=== PATIENT | male | born 1945 | race Caucasian/White ===

== ENCOUNTER 2017-11-19 11:31 | Inpatient (IN) | payer OTHER, MEDICARE ==
[2017-11-19] MEDS ORDERED: HYDROmorphone 0.5 MG/0.5 ML SYRINGE IM STA (12:36)
[2017-11-19] MEDS ORDERED: DIAZEPAM 5 MG TAB PO STA (12:39)
[2017-11-19] MEDS ORDERED: NAPROXEN 250 MG TAB PO STA (12:39)
--- NOTE | 2017-11-19 13:36 | ED ---
General Adult HPI - General Chief complaint: Fall Stated complaint: Fall Time Seen by Provider: 11/19/17 12:08 Source: family, RN notes reviewed, old records reviewed Mode of arrival: wheelchair Limitations: no limitations - History of Present Illness Initial comments: This is a 72-year-old male to the ER for evaluation. Patient was essay for evaluation regarding back pain, back pain status post fall. Back pain with right leg pain. Patient has history of back surgery. This is followed 3 days ago currently. He was seen in the hospital have CAT scan and was told there was no acute injury. Patient states pain is just progressively worsened activity level is progressively worsened. Pain is better when he is laying flat denies any new trauma no loss of bowel or bladder, he does have pain down right leg but no neurological issues - Related Data Allergies Allergy/AdvReac Type Severity Reaction Status Date / Time morphine AdvReac Nausea & Verified 11/19/17 11:41 Vomiting Penicillins AdvReac Nausea & Verified 11/19/17 11:41 Vomiting Review of Systems ROS Statement: Those systems with pertinent positive or pertinent negative responses have been documented in the HPI. ROS Other: All systems not noted in ROS Statement are negative. Past Medical History Past Medical History: Diabetes Mellitus, Osteoarthritis (OA) Additional Past Medical History / Comment(s): neuropathy, tachycardia History of Any Multi-Drug Resistant Organisms: None Reported Past Surgical History: Back Surgery, Cardiac Ablation, Orthopedic Surgery Additional Past Surgical History / Comment(s): carpal tunnel Past Psychological History: No Psychological Hx Reported Smoking Status: Former smoker Past Alcohol Use History: None Reported Past Drug Use History: None Reported General Exam - General Exam Comments Initial Comments: Straight leg raising right leg negative Limitations: no limitations General appearance: alert, in no apparent distress Head exam: Present: atraumatic, normocephalic, normal inspection Eye exam: Present: normal appearance, PERRL, EOMI. Absent: scleral icterus, conjunctival injection, periorbital swelling ENT exam: Present: normal exam, mucous membranes moist Neck exam: Present: normal inspection. Absent: tenderness, meningismus, lymphadenopathy Respiratory exam: Present: normal lung sounds bilaterally. Absent: respiratory distress, wheezes, rales, rhonchi, stridor Cardiovascular Exam: Present: regular rate, normal rhythm, normal heart sounds. Absent: systolic murmur, diastolic murmur, rubs, gallop, clicks GI/Abdominal exam: Present: soft, normal bowel sounds. Absent: distended, tenderness, guarding, rebound, rigid Extremities exam: Present: normal inspection, full ROM, normal capillary refill. Absent: tenderness, pedal edema, joint swelling, calf tenderness Back exam: Present: normal inspection Neurological exam: Present: alert, oriented X3, CN II-XII intact Psychiatric exam: Present: normal affect, normal mood Skin exam: Present: warm, dry, intact, normal color. Absent: rash Course Vital Signs 11/19/17 11:37 Temperature 97.7 F Pulse Rate 83 Respiratory 20 Rate Blood Pressure 129/73 O2 Sat by Pulse 99 Oximetry - Reevaluation(s) Reevaluation #1: 11/19/17 13:35 Family states that they did have a consult of her radiologist family member regarding computed tomography scan done earlier in the week which showed possible fracture of L1 vertebra Reevaluation #2: 11/19/17 14:54 pain is controlled Medical Decision Making - Medical Decision Making 72 male the ER, positive multiple thoracic compression fractures, lumbar spine compression fractures, we will will admit patient for pain control evaluation by Dr. Woody possible bracing, MRI to rule out cord compression - Radiology Data Radiology results: report reviewed (CT thoracic and lumbar spine show positive compression fractures), image reviewed Disposition Clinical Impression: Fall, Fracture of thoracic vertebra, compression, Compression fx, lumbar spine Disposition: ADMITTED IP TO THIS [facility] Condition: Fair Is patient prescribed a controlled substance at d/c from ED?: No Referrals: Nonstaff,Physician [REFERRING] - 1-2 days
--- NOTE | 2017-11-19 14:22 | CT ---
EXAMINATION TYPE: CT lumbar spine wo con DATE OF EXAM: 11/19/2017 2:08 PM COMPARISON: NONE HISTORY: Fall, back pain getting worse CT DLP: 919.29 mGycm Automated exposure control for dose reduction was used. Unenhanced CT of the lumbar spine was performed. Bone and soft tissue window settings are submitted as well as coronal and sagittal reconstructions. L1-L2: Compression fracture of the superior endplate of L1 with about 20% loss of height. No definite retropulsed bony fragment. Preservation of the disc space height. No disc herniation protrusion or central stenosis. No facet joint arthropathy. No evidence for foraminal encroachment. Preservation of the posterior neural arches and pedicles. L2-L3: Normal disc space height. Vacuum phenomenon at the L2-L3 intervertebral disc. No disc herniat ion protrusion or central stenosis. Hypertrophic changes of the posterior facets. Mild degree of suba rticular recess stenosis. L3-L4: Normal disc space height. Circumferential disc bulge of the anulus fibrosis posteriorly.. No facet joint arthropathy. No evidence for foraminal encroachment. L4-L5: Normal disc space height. Discogenic protrusion toward the right side producing narrowing of t he right exiting neural foramina. Vacuum phenomenon at the intervertebral disc space.. Hypertrophic c hanges of the posterior facets. L5-S1: Normal disc space height. No disc herniation protrusion or central stenosis. No facet joint arthropathy. No evidence for foraminal encroachment. IMPRESSION: Compression fracture of the superior endplate of L1 with about 20% loss of height. No retropulsed bon y fragments. No significant compromise into the spinal canal. Vacuum phenomenon at multiple intervert ebral disc spaces as described above with the screening bulges. Hypertrophic changes of the posterior facets with mild degree of subarticular recess stenosis more noticeable at the L2 on L3 level.
--- NOTE | 2017-11-19 14:27 | CT ---
EXAMINATION TYPE: CT thoracic spine wo con DATE OF EXAM: 11/19/2017 COMPARISON: Prior CT study from outside institution dated 620 01/16/2018 HISTORY: Fall, back pain getting worse CT DLP: 1444.84 mGycm Automated exposure control for dose reduction was used. FINDINGS: Dorsal kyphosis with multiple compression deformities between 20 and 25% loss of height at the level of the fourth, fifth, sixth and seventh dorsal vertebra. Dorsal kyphosis centered on the mid thoracic level. No retropulsed bony fragment. Schmorl node at inferior endplate of the ninth dorsal vertebra. Prominent osteophytic spur formation throughout the dorsal spine. No significant thoracic cord compr ession although level with the thoracic spine MRI may be performed for further evaluation. IMPRESSION: MULTIPLE COMPRESSION DEFORMITIES INVOLVING THE FOURTH, FIFTH, SIXTH AND SEVENTH DORSAL VERTEBRA WITH ABOUT 20-25% LOSS OF HEIGHT AT MULTIPLE LEVELS DESCRIBED WITH DORSAL KYPHOSIS. NO DEFINITE RETROPU LSED BONY FRAGMENTS.
--- NOTE | 2017-11-19 14:36 | CT ---
EXAMINATION TYPE: CT sacrum wo con DATE OF EXAM: 11/19/2017 COMPARISON: NONE HISTORY: Fall, back pain getting worse CT DLP: 573.31 mGycm Automated exposure control for dose reduction was used. FINDINGS: Osteopenia of the visible bony structures. Acute angulation along the level of the third sacral segme nt indicative of a sacral fracture which is essentially not displaced. IMPRESSION: OSTEOPENIA OR VISIBLE BONY STRUCTURE WITH AN ESSENTIALLY UNDISPLACED FRACTURE OF THE LEVEL OF THE THI RD SACRAL SEGMENT VISUALIZED ON THE LATERAL PROJECTION.
[2017-11-19] MEDS ORDERED: SODIUM CHLORIDE 0.9% 1,000 ML IV ONE (14:54)
[2017-11-19] MEDS ORDERED: ONDANSETRON 4 MG/2 ML VIAL IVP STA (14:54)
[2017-11-19] MEDS ORDERED: SODIUM CHLORIDE 0.9% 1,000 ML IV STA ×2 (14:54)
[2017-11-19] MEDS ORDERED: HYDROmorphone 0.5 MG/0.5 ML SYRINGE IVP STA (14:54)
[2017-11-19 16:22] LABS: Basophils % (A) 1 %; Eosinophils # (A) 0.1 k/uL (0-0.7); Eosinophils % (A) 3 %; HCT 37.1 % (39.0-53.0); HGB 12.5 gm/dL (13.0-17.5); Lymphocytes % (A) 21 %; MCH 30.4 pg (25.0-35.0); MCHC 33.5 g/dL (31.0-37.0); MCV 90.6 fL (80.0-100.0); Mean Platelet Volume 6.3; Monocytes # (A) 0.3 k/uL (0-1.0); Monocytes % (A) 7 %; Neutrophils # (A) 3.1 k/uL (1.3-7.7); Neutrophils % (A) 67 %; Platelet Count 176 k/uL (150-450); RDW 14.5 % (11.5-15.5); WBC 4.6 k/uL (3.8-10.6)
[2017-11-19 16:29] LABS: INR 0.9 (<1.2); Partial Thromboplastin Time 23.1 sec (22.0-30.0); Prothrombin Time 9.5 sec (9.0-12.0)
[2017-11-19 16:39] LABS: Albumin 3.6 g/dL (3.5-5.0); Calcium 8.8 mg/dL (8.4-10.2); Magnesium 1.9 mg/dL (1.6-2.3); Phosphorus 3.7 mg/dL (2.5-4.5); Potassium 4.9 mmol/L (3.5-5.1); Total Bilirubin 0.5 mg/dL (0.2-1.3); Total Protein 5.9 g/dL (6.3-8.2)
[2017-11-19 16:50] LABS: Creatine Kinase MB 1.4 ng/mL (0.0-2.4)
[2017-11-19] MEDS ORDERED: oxyCODONE-APAP 5-325MG 1 EACH TAB PO PRN (21:09)
[2017-11-19] MEDS ORDERED: DOCUSATE 100 MG CAP PO PRN (21:09)
[2017-11-19] MEDS ORDERED: ATORVASTATIN 10 MG TAB PO SCH (21:15)
[2017-11-19] MEDS ORDERED: Insulin Aspart (For Pump) 100 UNIT/ML VIAL SQ-PUMP SCH (21:15)
[2017-11-19] MEDS ORDERED: ONDANSETRON 4 MG/2 ML VIAL IVP PRN (21:24)
[2017-11-19] MEDS ORDERED: TAMSULOSIN 0.4 MG CAP.ER.24H PO SCH (21:30)
[2017-11-19] MEDS ORDERED: METOPROLOL SUCCINATE (ER) 25 MG TAB.ER.24H PO SCH (21:30)
[2017-11-19 21:31] LABS: Glucose,Whole Blood 203 mg/dL (75-99)
[2017-11-19] MEDS: HYDROmorphone 0.5 MG/0.5 ML SYRINGE IVP PRN (21:55)
[2017-11-19] MEDS: busPIRone HCl 5 MG TAB PO SCH (22:03)
[2017-11-19] MEDS: CYCLOBENZAPRINE 10 MG TAB PO PRN (22:05)
[2017-11-19] MEDS: FLECAINIDE 50 MG TAB PO SCH (22:05)
[2017-11-19] MEDS ORDERED: INSULIN ASPART 100 UNIT/ML 1 ML 10 ML VIAL SQ PRN (22:51)
[2017-11-19] MEDS ORDERED: INSPUCOR MISCELLANE PRN (22:51)
[2017-11-19] MEDS ORDERED: INSULIN PUMP BASAL RATES 1 EACH MISC MISCELLANE PRN (22:51)
[2017-11-19 23:16] VITALS: RESP 16
[2017-11-19 23:39] LABS: Appearance,Urine Clear (Clear); Bilirubin,Urine Negative (Negative); Blood,Urine Negative (Negative); Color,Urine Yellow; Glucose,Urine (UA) Negative (Negative); Ketones,Urine Negative (Negative); Leukocyte Esterase,Urine Negative (Negative); Nitrite,Urine Negative (Negative); Protein,Urine Negative (Negative); Urobilinogen,Urine <2.0 mg/dL (<2.0)
[2017-11-20] MEDS: HYDROmorphone 0.5 MG/0.5 ML SYRINGE IVP PRN ×4 (01:00→13:05)
[2017-11-20 02:48] LABS: Glucose,Whole Blood 74 mg/dL (75-99)
[2017-11-20 06:57] LABS: Basophils % (A) 0 %; Eosinophils # (A) 0.2 k/uL (0-0.7); Eosinophils % (A) 4 %; HCT 36.1 % (39.0-53.0); HGB 11.7 gm/dL (13.0-17.5); Lymphocytes # (A) 0.9 k/uL (1.0-4.8); Lymphocytes % (A) 23 %; MCH 29.9 pg (25.0-35.0); MCHC 32.6 g/dL (31.0-37.0); MCV 91.8 fL (80.0-100.0); Mean Platelet Volume 6.6; Monocytes # (A) 0.2 k/uL (0-1.0); Monocytes % (A) 6 %; Neutrophils # (A) 2.6 k/uL (1.3-7.7); Neutrophils % (A) 65 %; Platelet Count 173 k/uL (150-450); RBC 3.93 m/uL (4.30-5.90); RDW 14.8 % (11.5-15.5)
[2017-11-20 07:00] LABS: Glucose,Whole Blood 112 mg/dL (75-99)
[2017-11-20 07:07] LABS: Albumin 3.7 g/dL (3.5-5.0); Calcium 8.8 mg/dL (8.4-10.2); Potassium 4.7 mmol/L (3.5-5.1); Total Bilirubin 0.4 mg/dL (0.2-1.3); Total Protein 5.8 g/dL (6.3-8.2)
[2017-11-20] MEDS: busPIRone HCl 5 MG TAB PO SCH (08:21)
[2017-11-20] MEDS: FLECAINIDE 50 MG TAB PO SCH (08:22)
--- NOTE | 2017-11-20 08:55 | P.CNOR ---
History of Present Illness - [facility] Consult date: 11/20/17 Requesting physician: Aristides Mitchell Consult reason: fracture, low back pain (L1 fracture and sacral fracture status post fall) History of present illness: Patient is a very pleasant 72-year-old male who is seen and examined at bedside for further evaluation for acute low back pain status post fall. Patient states he used to reside [place] but now resides in [place] year-round. He came to visit his mother and was helping move some household items. On , 11/16/2017, he states he was moving a saw in a wheelbarrow out of the garage when the wheelbarrow started moving too fast. He was going backwards trying to stop at which time it knocked him to the ground. Since that time he has had an exacerbation of low back pain and some sacral pain. He presented to [facility] on for further evaluation. CT was taken on that time which he states no acute findings were found. His symptoms continued to worsen and he presented to [facility] yesterday, 11/19/2017. At that time, CT scans of the thoracic spine, lumbar spine, and sacrum were performed which did show evidence of a compression fracture deformity at L1, fracture at the third segment of the sacrum, and multiple compression fracture deformities of the thoracic spine at T4, T5, T6, and T7. He does not remember any previous fractures in his thoracic or lumbar spines. He does admit to previous surgical intervention of his thoracic spine which he states was at approximately T10-11 and performed years ago. He currently denies any lower extremity radiculopathy or weakness bilaterally. He does have significant exacerbation of low back pain with coughing, sneezing, and moving. His pain is better controlled while lying in bed. He does state he has some lower sacral pain that is exacerbated with sitting. He denies any specific thoracic pain at his previous surgical site or above his surgical site. He states today he would like to return to [place] soon as he is able to do so. He states [facility] [place] and [facility] full coverage of medical needs there. Past Medical History Past Medical History: Diabetes Mellitus, Osteoarthritis (OA) Additional Past Medical History / Comment(s): neuropathy, tachycardia History of Any Multi-Drug Resistant Organisms: None Reported Past Surgical History: Back Surgery, Cardiac Ablation, Orthopedic Surgery Additional Past Surgical History / Comment(s): carpal tunnel, Left shoulder replacement Past Psychological History: No Psychological Hx Reported Smoking Status: Former smoker Past Alcohol Use History: None Reported Past Drug Use History: None Reported - Past Family History Mother Family Medical History: No Reported History Father Family Medical History: No Reported History Medications and Allergies Home Medications Medication Instructions Recorded Confirmed Type Albuterol Inhaler [Ventolin Hfa 1 - 2 puff INHALATION RT-Q6H PRN 11/19/17 History Inhaler] Ascorbic Acid [Vitamin C] 500 mg PO DAILY 11/19/17 11/19/17 History Aspirin EC [Ecotrin Low Dose] 81 mg PO DAILY 11/19/17 11/19/17 History Atorvastatin [Lipitor] 5 mg PO HS 11/19/17 11/19/17 History Cyclobenzaprine [Flexeril] 10 mg PO Q6H PRN 11/19/17 11/19/17 History DULoxetine HCL [Cymbalta] 30 mg PO DAILY 11/19/17 11/19/17 History Docusate [Colace] 100 mg PO DAILY PRN 11/19/17 11/19/17 History Ezetimibe [Zetia] 5 mg PO DAILY 11/19/17 11/19/17 History Ferrous Sulfate [Feosol] 325 mg PO DAILY 11/19/17 11/19/17 History Flecainide Acetate 100 mg PO BID 11/19/17 11/19/17 History Glucosam/Yahir-Msm1/C/Abelino/Bosw 1 tab PO DAILY 11/19/17 11/19/17 History [Glucosamine-Chondroitin Tablet] Ibuprofen [Motrin Ib] 800 mg PO Q6H PRN 11/19/17 11/19/17 History Insulin Aspart (For Pump) [NovoLOG 0.01 unit SQ-PUMP CONTINUOUS 11/19/17 History (For Pump)] Lisinopril [Zestril] 10 mg PO DAILY 11/19/17 11/19/17 History Lysine 500 mg PO DAILY 11/19/17 11/19/17 History Metoprolol Succinate [Toprol XL] 12.5 mg PO HS 11/19/17 11/19/17 History Multivitamins, Thera [Multivitamin 1 tab PO DAILY 11/19/17 11/19/17 History (formulary)] Emeigh-3 Fatty Acids/Fish Oil [Fish 1 cap PO DAILY 11/19/17 11/19/17 History Oil 1,000 mg Softgel] Tamsulosin HCl [Flomax] 0.4 mg PO HS 11/19/17 11/19/17 History busPIRone HCL 15 mg PO TID 11/19/17 11/19/17 History oxyCODONE-APAP 5-325MG [Percocet 1 tab PO Q8HR PRN 11/19/17 11/19/17 History 5-325 mg] Allergies Allergy/AdvReac Type Severity Reaction Status Date / Time morphine AdvReac Nausea & Verified 11/19/17 15:32 Vomiting Penicillins AdvReac Nausea & Verified 11/19/17 15:32 Vomiting Physical Examination Physical exam: Patient is awake, alert, and oriented 3 Vital signs stable Good chest excursion with deep inspiration and expiration Examination of thoracic spine, lumbar spine and sacrum reveals skin is intact with no abrasions, lacerations, or bruises; no erythema, purulence or signs of infection No pain with palpation along the midline of the entire thoracic spine; no pain with percussion of the thoracic spine Evidence of a large well-healed incision along the midline of the mid to lower thoracic spine Pain with palpation along the midline of the lumbar spine consistent with fracture at L1 Some pain with palpation of the sacrum Dorsiflexion, plantarflexion, and extensor hallucis longus positive sustained bilaterally Lower extremity strength 5/5 bilaterally Patient is able to move legs independently in bed without significant difficulty Patellar reflex 1+ bilaterally and Achilles reflexes 0+ bilaterally No lower extremity hyperreflexia bilaterally Straight leg test negative bilateral lower extremities No signs or symptoms of DVT; no calf pain No pain with internal and external rotation of the hips bilaterally Neurovascularly intact Results Pertinent studies: CT of the thoracic spine taken on 11/19/2017: Multiple compression fracture deformities at T4, T5, T6, and T7 with approximately 20% to 25% height loss; no evidence of retropulsed bony fragments; dorsal kyphosis centered at the mid thoracic level; prominent osteophytic spur formation throughout the dorsal spine CT of the lumbar spine taken on 11/19/2017: L1 compression fracture deformity is superior endplate with approximately 20% height loss with no evidence of retropulsed bony fragments; no evidence of significant compromise into the spinal canal; hypertrophic changes of the posterior facet joints with mild subarticular recess stenosis most prominent L2-3 CT of the sacrum taken on 11/19/2017: Acute angulation on the third sacral segment indicative of sacral fracture which is essentially nondisplaced; osteopenia - Labs Labs: Abnormal Lab Results - Last 24 Hours (Table) 11/19/17 11/19/17 11/19/17 Range/Units 15:25 15:25 21:30 RBC 4.10 L (4.30-5.90) m/uL Hgb 12.5 L (13.0-17.5) gm/dL Hct 37.1 L (39.0-53.0) % Lymphocytes # (1.0-4.8) k/uL Sodium 136 L (137-145) mmol/L Glucose 198 H (74-99) mg/dL POC Glucose (mg/dL) 203 H (75-99) mg/dL Total Protein 5.9 L (6.3-8.2) g/dL 11/20/17 11/20/17 11/20/17 Range/Units 02:38 06:35 06:35 RBC 3.93 L (4.30-5.90) m/uL Hgb 11.7 L (13.0-17.5) gm/dL Hct 36.1 L (39.0-53.0) % Lymphocytes # 0.9 L (1.0-4.8) k/uL Sodium (137-145) mmol/L Glucose 108 H (74-99) mg/dL POC Glucose (mg/dL) 74 L (75-99) mg/dL Total Protein 5.8 L (6.3-8.2) g/dL 11/20/17 Range/Units 06:59 RBC (4.30-5.90) m/uL Hgb (13.0-17.5) gm/dL Hct (39.0-53.0) % Lymphocytes # (1.0-4.8) k/uL Sodium (137-145) mmol/L Glucose (74-99) mg/dL POC Glucose (mg/dL) 112 H (75-99) mg/dL Total Protein (6.3-8.2) g/dL H & H 11/19/17 11/20/17 Range/Units 15:25 06:35 Hgb 12.5 L 11.7 L (13.0-17.5) gm/dL Hct 37.1 L 36.1 L (39.0-53.0) % Coagulation 11/19/17 Range/Units 15:25 INR 0.9 (<1.2) Result Diagrams: 11/20/17 06:35 11/20/17 06:35 Assessment and Plan Assessment: Assessment: Low back pain Sacral pain L1 compression fracture Sacral fracture of the third segment Status post fall History of previous thoracic spine surgery Multiple compression fracture deformities at T4, T5, T6, and T7 that appear chronic in nature (1) Closed L1 vertebral fracture Current Visit: Yes Status: Acute Code(s): S32.019A - UNSP FRACTURE OF FIRST LUMBAR VERTEBRA, INIT FOR CLOS FX SNOMED Code(s): 848684317 (2) Sacral fracture, closed Current Visit: Yes Status: Acute Code(s): S32.10XA - UNSP FRACTURE OF SACRUM , INIT ENCNTR FOR CLOSED FRACTURE SNOMED Code(s): 523170686 (3) Low back pain Current Visit: Yes Status: Acute Code(s): M54.5 - LOW BACK PAIN SNOMED Code(s): 439007006 (4) Sacral pain Current Visit: Yes Status: Acute Code(s): M53.3 - SACROCOCCYGEAL DISORDERS, NOT ELSEWHERE CLASSIFIED SNOMED Code(s): 33289597 (5) Status post fall Current Visit: Yes Status: Acute Code(s): Z91.81 - HISTORY OF FALLING SNOMED Code(s): 220269871 (6) Multiple fractures of thoracic spine Current Visit: Yes Status: Acute Code(s): S22.009A - UNSP FRACTURE OF UNSP THORACIC VERTEBRA, INIT FOR CLOS FX SNOMED Code(s): 051389646 (7) History of spinal surgery Current Visit: Yes Status: Acute Code(s): Z98.890 - OTHER SPECIFIED POSTPROCEDURAL STATES SNOMED Code(s): 672623406 Plan: Plan: 1. Imaging has been reviewed. After physical examination of the patient and further discussion with the patient, we will currently planning continue with conservative treatment. He does have evidence of compression fracture deformity at L1 and a sacral fracture. He had a recent fall on 11/16/2017 and has had pain at the lower lumbar spine sacrum since that time. His symptoms correlate well with his imaging. We will plan to obtain an Exos LSO brace for his L1 compression fracture deformity. He should wear this brace while sitting upright at greater than 45, during ambulation, and during increase activities. He should avoid excessive bending, twisting, lifting; no lifting greater than 10 pounds. We will also plan to obtain a donut seat cushion which he may use for comfort support for his sacral fracture. He does have multiple compression fracture deformities at T4, T5, T6, and T7 that appear chronic in nature as he is not currently experiencing any significant pain or discomfort in the thoracic spine with active range of motion or at rest. He does have a history of previous thoracic spine surgery with a well-healed incision along the midline of the thoracic spine. He is not experiencing any pain at the surgical site. He is also not experiencing any lower extremity radiculopathy or weakness bilaterally and has good range of motion bilateral lower extremities. We feel he could benefit well with conservative treatment. Once the brace and donut seat cushion have been delivered and fitted appropriately, patient is clear for discharge from an orthopedic spine standpoint. We would prefer to continue following this patient in the outpatient setting, but patient does reside in [place] at all times of the year is eager to return to [place]. We discussed in detail that upon discharge he may plan to return to [place] and is encouraged to follow up with his primary care provider at the [facility] for ongoing treatment and evaluation for his compression fracture deformity and sacral fracture. He also plans to take imaging with him when he returns to [place]. 2. Continue pain control with medications as prescribed 3. Medicine will continue following the patient closely 4. Following discharge, if patient continues to remain in the area, he may plan a follow-up with Darci Bey PA-C or Dr. Mike Tillman at [facility] in 2-3 weeks 5. Patient be discussed in detail with Dr. Mike Tillman Time with Patient: Less than 30
[2017-11-20] MEDS ORDERED: NON-FORMULARY DRUG (Lysine [Lysine] 500 MG) PO SCH (09:00)
[2017-11-20] MEDS ORDERED: ASPIRIN 81 MG PO SCH (09:00)
[2017-11-20] MEDS ORDERED: EZETIMIBE 10 MG TAB PO SCH (09:00)
[2017-11-20] MEDS ORDERED: LISINOPRIL 10 MG TAB PO SCH (09:00)
[2017-11-20] MEDS ORDERED: DULoxetine HCL 30 MG CAPSULE.DR PO SCH (09:00)
[2017-11-20 11:35] LABS: Glucose,Whole Blood 113 mg/dL (75-99)
[2017-11-20] MEDS ORDERED: MULTIVITAMINS, THERA 1 EACH TAB PO SCH (12:00)
[2017-11-20] MEDS ORDERED: FERROUS SULFATE 325 MG TAB PO SCH (12:00)
[2017-11-20] MEDS ORDERED: ASCORBIC ACID 500 MG TAB PO SCH (12:00)
[2017-11-20 15:14] VITALS: BP 106/64; PULSE 74; TEMP 97.7
[2017-11-20 15:22] LABS: Hemoglobin A1C 7.3 % (4.0-6.0)
[2017-11-20] MEDS: CYCLOBENZAPRINE 10 MG TAB PO PRN (16:16)
--- NOTE | 2017-11-20 20:34 | P.HPIM ---
History of Present Illness H&P Date: 11/20/17 Chief Complaint: Low back pain after a fall This is a pleasant 82-year-old gentleman with no current PCP. His PCP is in [place], admitted to the emergency room secondary to a traumatic fall. He was visiting his mom here in [place] and helping in the house chores when He fell November 16, 2017 and he was transporting saw in a wheelbarrow the that has 2 wheels, coming down the heel backward, the patient cannot control this descent, and time pulled fell backwards, and Narcan down to the ground. Patient has exacerbation of back pain and some lower sacral pain. He was seen at [facility] for further evaluation, CAT scan at that time failed no acute findings, patient continued to have progressive symptoms, and was subsequently seen in emergency room. CAT scan was performed November 19 at [facility] involving thoracic lumbar spine sacrum that showed evidence of compression*fracture deformity at L1, fraction at the third segment of the sacrum and multiple compression fracture deformities of the thoracic spine T4 T5 T6 and T7 he follows at the [facility] in [place], and currently is off narcotics except for Tylenol threes and is weaning off the narcotics. During his last visit on [facility], he was given 60 tablets of Percocet for control of this pain. He states that there is an lower back pain axis worsened by sitting, coughing, and sneezing He currently in for an observation and have orthopedic surgeon evaluate him he was seen by orthopedics surgery during his current hospitalization, and recommended LSO brace, as they have thought that the L1 fracture is acute, and the compression fracture deformities in the T4-5-6 7 were all old. Review of Systems Constitutional: Reports as per HPI, Denies anorexia, Denies chills, Denies chronic headaches, Denies chronic pain, Denies daytime sleepiness, Denies fatigue, Denies fever, Denies lethargy, Denies malaise, Denies night sweats, Denies poor appetite, Denies sweats, Denies weakness, Denies weight gain, Denies weight loss Ears, nose, mouth and throat: Reports as per HPI, Denies ant. neck pain, Denies bleeding gums, Denies dental pain, Denies dysphagia, Denies epistaxis, Denies headache, Denies hoarseness, Denies mouth pain, Denies nasal congestion, Denies nasal discharge, Denies neck fullness/pressure, Denies neck lump, Denies nose pain, Denies odynophagia, Denies post-nasal drip, Denies sinus pain, Denies sinus pressure, Denies swelling in mouth, Denies swelling in throat, Denies sore throat, Denies vertigo, Denies voice changes Cardiovascular: Reports as per HPI, Denies chest pain, Denies claudication, Denies decreased exercise tolerance, Denies dyspnea on exertion, Denies edema, Denies high blood pressure, Denies irregular heart beat, Denies leg edema, Denies lightheadedness, Denies orthopnea, Denies palpitations, Denies paroxysmal nocturnal dyspnea, Denies phlebitis, Denies rapid heart beat, Denies shortness of breath, Denies syncope Respiratory: Reports as per HPI, Denies congestion, Denies cough, Denies cough with sputum, Denies dyspnea, Denies excessive sputum, Denies hemoptysis, Denies home oxygen, Denies pain, Denies pain on inspiration, Denies pleurisy, Denies respiratory infections, Denies sleep apnea, Denies snoring, Denies wheezing Gastrointestinal: Reports as per HPI, Denies abdominal pain, Denies belching, Denies bloating, Denies BRBPR, Denies change in bowel habits, Denies coffee ground emesis, Denies constipation, Denies diarrhea, Denies dyspepsia, Denies early satiety, Denies excessive gas, Denies heartburn, Denies hematemesis, Denies hematochezia, Denies indigestion, Denies jaundice, Denies lactose intolerance, Denies loss of appetite, Denies melena, Denies nausea, Denies vomiting Genitourinary: Reports as per HPI, Denies decreased libido, Denies difficulties fathering child, Denies discharge, Denies dysuria, Denies erectile dysfunction, Denies flank pain, Denies genital pain, Denies genital sores, Denies hematuria, Denies impotence, Denies incontinence, Denies kidney stones, Denies nocturia, Denies polyuria, Denies testicular lump, Denies testicular pain, Denies urinary frequency, Denies urinary hesitancy, Denies urinary retention Musculoskeletal: Reports as per HPI, Reports fractures, Reports limitation of motion, Reports loss of height, Denies arm numbness/tingling, Denies atrophy, Denies frequent falls, Denies gait dysfunction, Denies hot joints, Denies leg numbness/tingling, Denies low back pain, Denies morning stiffness, Denies muscle cramps, Denies muscle weakness, Denies myalgias, Denies neck pain, Denies neck stiffness, Denies prior amputations, Denies redness of joints, Denies shooting arm pain, Denies shooting leg pain Integumentary: Reports as per HPI Neurological: Reports as per HPI, Denies aphasia, Denies ataxia, Denies balance difficulties, Denies burning pain, Denies change in mentation, Denies change in smell/taste, Denies change in speech, Denies confusion, Denies convulsions, Denies double vision, Denies gait dysfunction, Denies head injury, Denies headaches, Denies hearing difficulties, Denies lack of coordination, Denies loss of vision, Denies memory loss, Denies migraines, Denies motor disturbance, Denies numbness, Denies paralysis, Denies paresthesias, Denies seizures, Denies sensory deficit, Denies spasticity, Denies syncope, Denies tic, Denies tingling , Denies transient paralysis, Denies tremors, Denies vertigo, Denies weakness, Denies visual changes Psychiatric: Reports as per HPI, Denies anhedonia, Denies anxiety, Denies anxiety attacks, Denies change in appetite, Denies change in libido, Denies change in sleep habits, Denies confusion, Denies depression, Denies difficulty concentrating, Denies disorientation, Denies hallucinations, Denies hopelessness , Denies hypersomnia, Denies insomnia, Denies irritability, Denies memory loss, Denies mood swings, Denies paranoia, Denies sadness/tearfulness, Denies sleep disturbances, Denies suicidal ideation Endocrine: Reports as per HPI Hematologic/Lymphatic: Reports as per HPI Allergic/Immunologic: Reports as per HPI Past Medical History Past Medical History: Diabetes Mellitus, Osteoarthritis (OA) Additional Past Medical History / Comment(s): neuropathy, tachycardia History of Any Multi-Drug Resistant Organisms: None Reported Past Surgical History: Back Surgery, Cardiac Ablation, Orthopedic Surgery Additional Past Surgical History / Comment(s): carpal tunnel, Left shoulder replacement Past Psychological History: No Psychological Hx Reported Smoking Status: Former smoker Past Alcohol Use History: None Reported Past Drug Use History: None Reported - Past Family History Mother Family Medical History: No Reported History Father Family Medical History: No Reported History Medications and Allergies Home Medications Medication Instructions Recorded Confirmed Type Albuterol Inhaler [Ventolin Hfa 1 - 2 puff INHALATION RT-Q6H PRN 11/19/17 History Inhaler] Ascorbic Acid [Vitamin C] 500 mg PO DAILY 11/19/17 11/19/17 History Aspirin EC [Ecotrin Low Dose] 81 mg PO DAILY 11/19/17 11/19/17 History Atorvastatin [Lipitor] 5 mg PO HS 11/19/17 11/19/17 History Cyclobenzaprine [Flexeril] 10 mg PO Q6H PRN 11/19/17 11/19/17 History DULoxetine HCL [Cymbalta] 30 mg PO DAILY 11/19/17 11/19/17 History Docusate [Colace] 100 mg PO DAILY PRN 11/19/17 11/19/17 History Ezetimibe [Zetia] 5 mg PO DAILY 11/19/17 11/19/17 History Ferrous Sulfate [Iron (65 MG 325 mg PO DAILY 11/19/17 11/19/17 History Elemental)] Flecainide Acetate 100 mg PO BID 11/19/17 11/19/17 History Glucosam/Yahir-Msm1/C/Abelino/Bosw 1 tab PO DAILY 11/19/17 11/19/17 History [Glucosamine-Chondroitin Tablet] Ibuprofen [Motrin Ib] 800 mg PO Q6H PRN 11/19/17 11/19/17 History Insulin Aspart (For Pump) [NovoLOG 0.01 unit SQ-PUMP CONTINUOUS 11/19/17 History (For Pump)] Lisinopril [Zestril] 10 mg PO DAILY 11/19/17 11/19/17 History Lysine 500 mg PO DAILY 11/19/17 11/19/17 History Metoprolol Succinate [Toprol XL] 12.5 mg PO HS 11/19/17 11/19/17 History Multivitamins, Thera [Multivitamin 1 tab PO DAILY 11/19/17 11/19/17 History (formulary)] Eagle-3 Fatty Acids/Fish Oil [Fish 1 cap PO DAILY 11/19/17 11/19/17 History Oil 1,000 mg Softgel] Tamsulosin HCl [Flomax] 0.4 mg PO HS 11/19/17 11/19/17 History busPIRone HCL 15 mg PO TID 11/19/17 11/19/17 History oxyCODONE-APAP 5-325MG [Percocet 1 tab PO Q8HR PRN 11/19/17 11/19/17 History 5-325 mg] Lidocaine 5% Patch [Lidoderm] 1 patch TOPICAL DAILY #30 patch 11/20/17 Rx Allergies Allergy/AdvReac Type Severity Reaction Status Date / Time morphine AdvReac Nausea & Verified 11/19/17 15:32 Vomiting Penicillins AdvReac Nausea & Verified 11/19/17 15:32 Vomiting Physical Exam Vitals: Vital Signs Temp Pulse Pulse Resp BP Pulse Ox 11/20/17 15:14 97.7 F 74 16 106/64 94 L 11/20/17 05:20 98.0 F 71 16 110/65 93 L 11/19/17 20:45 97.6 F 72 16 120/72 96 Intake and Output 11/20/17 11/20/17 11/20/17 06:59 14:59 22:59 Output Total 200 Balance -200 Output: Urine 200 Other: Voiding Method Urinal # Voids 2 3 - Constitutional General appearance: cooperative, no acute distress - EENT Eyes: anicteric sclerae, EOMI, PERRLA, dentition normal, normal appearance ENT: hearing grossly normal, normal oropharynx - Neck Neck: normal ROM - Respiratory Respiratory: bilateral: CTA, negative: diminished, dullness, rales - Cardiovascular Rhythm: regular Heart sounds: normal: S1, S2 Abnormal Heart Sounds: no systolic murmur, no diastolic murmur, no rub, no S3 Gallop, no S4 Gallop, no click, no other - Gastrointestinal General gastrointestinal: normal bowel sounds, soft - Integumentary Integumentary: decreased turgor, normal - Neurologic Neurologic: CNII-XII intact - Musculoskeletal Musculoskeletal: gait normal, strength equal bilaterally - Psychiatric Psychiatric: A&O x's 3, appropriate affect, intact judgment & insight Results CBC & Chem 7: 11/20/17 06:35 11/20/17 06:35 Labs: Abnormal Lab Results - Last 24 Hours (Table) 07/06/0811/19/17 11/20/17 Range/Units 15:25 21:30 02:38 RBC (4.30-5.90) m/uL Hgb (13.0-17.5) gm/dL Hct (39.0-53.0) % Lymphocytes # (1.0-4.8) k/uL Glucose (74-99) mg/dL POC Glucose (mg/dL) 203 H 74 L (75-99) mg/dL Hemoglobin A1c 7.3 H (4.0-6.0) % Total Protein (6.3-8.2) g/dL 11/20/17 11/20/17 11/20/17 Range/Units 06:35 06:35 06:59 RBC 3.93 L (4.30-5.90) m/uL Hgb 11.7 L (13.0-17.5) gm/dL Hct 36.1 L (39.0-53.0) % Lymphocytes # 0.9 L (1.0-4.8) k/uL Glucose 108 H (74-99) mg/dL POC Glucose (mg/dL) 112 H (75-99) mg/dL Hemoglobin A1c (4.0-6.0) % Total Protein 5.8 L (6.3-8.2) g/dL 11/20/17 Range/Units 11:33 RBC (4.30-5.90) m/uL Hgb (13.0-17.5) gm/dL Hct (39.0-53.0) % Lymphocytes # (1.0-4.8) k/uL Glucose (74-99) mg/dL POC Glucose (mg/dL) 113 H (75-99) mg/dL Hemoglobin A1c (4.0-6.0) % Total Protein (6.3-8.2) g/dL Microbiology - Last 24 Hours (Table) 11/19/17 23:16 Urine Culture - Preliminary Urine,Voided Laboratory Results WBC 4.0 k/uL (3.8-10.6) 11/20/17 06:35 RBC 3.93 m/uL (4.30-5.90) L 11/20/17 06:35 Hgb 11.7 gm/dL (13.0-17.5) L 11/20/17 06:35 Hct 36.1 % (39.0-53.0) L 11/20/17 06:35 MCV 91.8 fL (80.0-100.0) 11/20/17 06:35 MCH 29.9 pg (25.0-35.0) 11/20/17 06:35 MCHC 32.6 g/dL (31.0-37.0) 11/20/17 06:35 RDW 14.8 % (11.5-15.5) 11/20/17 06:35 Plt Count 173 k/uL (150-450) 11/20/17 06:35 Neutrophils % 65 % 11/20/17 06:35 Lymphocytes % 23 % 11/20/17 06:35 Monocytes % 6 % 11/20/17 06:35 Eosinophils % 4 % 11/20/17 06:35 Basophils % 0 % 11/20/17 06:35 Neutrophils # 2.6 k/uL (1.3-7.7) 11/20/17 06:35 Lymphocytes # 0.9 k/uL (1.0-4.8) L 11/20/17 06:35 Monocytes # 0.2 k/uL (0-1.0) 11/20/17 06:35 Eosinophils # 0.2 k/uL (0-0.7) 11/20/17 06:35 Basophils # 0.0 k/uL (0-0.2) 11/20/17 06:35 PT 9.5 sec (9.0-12.0) 11/19/17 15:25 INR 0.9 (<1.2) 11/19/17 15:25 APTT 23.1 sec (22.0-30.0) 11/19/17 15:25 Sodium 140 mmol/L (137-145) 11/20/17 06:35 Potassium 4.7 mmol/L (3.5-5.1) 11/20/17 06:35 Chloride 102 mmol/L (98-107) 11/20/17 06:35 Carbon Dioxide 28 mmol/L (22-30) 11/20/17 06:35 Anion Gap 10 mmol/L 11/20/17 06:35 BUN 19 mg/dL (9-20) 11/20/17 06:35 Creatinine 1.11 mg/dL (0.66-1.25) 11/20/17 06:35 Est GFR (CKD-EPI)AfAm 78 (>60 ml/min/1.73 sqM) 11/20/17 06:35 Est GFR (CKD-EPI)NonAf 67 (>60 ml/min/1.73 sqM) 11/20/17 06:35 Glucose 108 mg/dL (74-99) H 11/20/17 06:35 POC Glucose (mg/dL) 113 mg/dL (75-99) H 11/20/17 11:33 POC Glu [employer]er ID Amarilis Hester 11/20/17 11:[address] Glu mg/dL 163 11/19/17 15:25 Hemoglobin A1c 7.3 % (4.0-6.0) H 11/19/17 15:25 Calcium 8.8 mg/dL (8.4-10.2) 11/20/17 06:35 Phosphorus 3.7 mg/dL (2.5-4.5) 11/19/17 15:25 Magnesium 1.9 mg/dL (1.6-2.3) 11/19/17 15:25 Total Bilirubin 0.4 mg/dL (0.2-1.3) 11/20/17 06:35 AST 24 U/L (17-59) 11/20/17 06:35 ALT 35 U/L (21-72) 11/20/17 06:35 Alkaline Phosphatase 70 U/L (38-126) 11/20/17 06:35 Total Creatine Kinase 83 U/L (55-170) 11/19/17 15:25 CK-MB (CK-2) 1.4 ng/mL (0.0-2.4) 11/19/17 15:25 CK-MB (CK-2) Rel Index 1.7 11/19/17 15:25 Total Protein 5.8 g/dL (6.3-8.2) L 11/20/17 06:35 Albumin 3.7 g/dL (3.5-5.0) 11/20/17 06:35 Vitamin D 25-Hydroxy 35.8 ng/mL (30.0-100.0) 11/20/17 06:35 Urine Color Yellow 11/19/17 23:16 Urine Appearance Clear (Clear) 11/19/17 23:16 Urine pH 5.0 (5.0-8.0) 11/19/17 23:16 Ur Specific [place] 1.010 (1.001-1.035) 11/19/17 23:16 Urine Protein Negative (Negative) 11/19/17 23:16 Urine Glucose (UA) Negative (Negative) 11/19/17 23:16 Urine Ketones Negative (Negative) 11/19/17 23:16 Urine Blood Negative (Negative) 11/19/17 23:16 Urine Nitrite Negative (Negative) 11/19/17 23:16 Urine Bilirubin Negative (Negative) 11/19/17 23:16 Urine Urobilinogen <2.0 mg/dL (<2.0) 11/19/17 23:16 Ur Leukocyte Esterase Negative (Negative) 11/19/17 23:16 Thrombosis Risk Factor Assmnt - Choose All That Apply Any of the Below Risk Factors Present?: Yes Each Factor Represents 1 point: Obesity (BMI >25) Other Risk Factors: Yes Each Risk Factor Represents 2 Points: Age 61-74 years Thrombosis Risk Factor Assessment Total Risk Factor Score: 3 Thrombosis Risk Factor Assessment Level: Moderate Risk Assessment and Plan Plan: 1. Evidence of compression fracture deformity at L1 and a sacral fracture, with recent fall November 16, 2017 time mother's backyard, patient was seen by orthopedic surgeon for which an X all LS {4 L1 compression fracture deformity, to be used while sitting greater than 45, during ambulation injury and activities. Restrictions were given by orthopedics, and a donut seat cushion to support sacral fracture. No narcotics were given during this admission for discharge as he does have a prescription from [facility] for Percocet, however we have advised to start vitamin D, and Lidoderm patch to the sacral region for additional pain control. Muscle relaxants were given and he was cleared for discharge by orthopedic 2. Diabetes mellitus type 2, on insulin pump 3. CAD with arrhythmia on flecainide 100 mg twice a day, follows with cardiology /EPS physician at [place], has an appointment for November 23 for imaging studies continue metoprolol aspirin 4 Hyperlipidemia on Monday and Lipitor no changes made 5. Lumbar disc disease with chronic pain, follows with [place] pain physicians, narcotics were given from [facility] a few days ago, no narcotics scripts were dispensed to the patient today 6. Anxiety disorder on BuSpar 5 mg at bedtime BPH without an lowering tract symptomatology Hypertension on lisinopril 10 mg daily metoprolol 12.5 mg at bedtime no changes made Discharge condition stable Discharge Medication List Albuterol Inhaler [Ventolin Hfa Inhaler] 1 - 2 puff INHALATION RT-Q6H PRN [History] Ascorbic Acid [Vitamin C] 500 mg PO DAILY 11/19/17 [History] Aspirin EC [Ecotrin Low Dose] 81 mg PO DAILY 11/19/17 [History] Atorvastatin [Lipitor] 5 mg PO HS 11/19/17 [History] Cyclobenzaprine [Flexeril] 10 mg PO Q6H PRN 11/19/17 [History] DULoxetine HCL [Cymbalta] 30 mg PO DAILY 11/19/17 [History] Docusate [Colace] 100 mg PO DAILY PRN 11/19/17 [History] Ezetimibe [Zetia] 5 mg PO DAILY 11/19/17 [History] Ferrous Sulfate [Iron (65 MG Elemental)] 325 mg PO DAILY 11/19/17 [History] Flecainide Acetate 100 mg PO BID 11/19/17 [History] Glucosam/Yahir-Msm1/C/Abelino/Bosw [Glucosamine-Chondroitin Tablet] 1 tab PO DAILY 11/19/17 [History] Ibuprofen [Motrin Ib] 800 mg PO Q6H PRN 11/19/17 [History] Insulin Aspart (For Pump) [NovoLOG (For Pump)] 0.01 unit SQ-PUMP CONTINUOUS 06/08 [History] Lisinopril [Zestril] 10 mg PO DAILY 11/19/17 [History] Lysine 500 mg PO DAILY 11/19/17 [History] Metoprolol Succinate [Toprol XL] 12.5 mg PO HS 11/19/17 [History] Multivitamins, Thera [Multivitamin (formulary)] 1 tab PO DAILY 11/19/17 [History ] Eagle-3 Fatty Acids/Fish Oil [Fish Oil 1,000 mg Softgel] 1 cap PO DAILY [History] Tamsulosin HCl [Flomax] 0.4 mg PO HS 11/19/17 [History] busPIRone HCL 15 mg PO TID 11/19/17 [History] oxyCODONE-APAP 5-325MG [Percocet 5-325 mg] 1 tab PO Q8HR PRN 11/19/17 [History] Lidocaine 5% Patch [Lidoderm] 1 patch TOPICAL DAILY #30 patch 11/20/17 [Rx]
== END 2017-11-20 16:20 | disposition home or self-care (01) | DRG 552 ==
LOC: EC 11:31 → 5MS5E 14:54
PROVIDERS: ADMIT Family Medicine; ATTEND Family Medicine
DX: S32.018A Other fracture of first lumbar vertebra, initial encounter for closed fracture (principal); S32.139A Unspecified Zone III fracture of sacrum, initial encounter for closed fracture; S22.048A Other fracture of fourth thoracic vertebra, initial encounter for closed fracture; S22.058A Other fracture of T5-T6 vertebra, initial encounter for closed fracture; S22.068A Other fracture of T7-T8 thoracic vertebra, initial encounter for closed fracture; E11.9 Type 2 diabetes mellitus without complications; E78.5 Hyperlipidemia, unspecified; F41.9 Anxiety disorder, unspecified; I10 Essential (primary) hypertension; N40.0 Benign prostatic hyperplasia without lower urinary tract symptoms; G89.29 Other chronic pain; M51.36 Other intervertebral disc degeneration, lumbar region; I25.10 Atherosclerotic heart disease of native coronary artery without angina pectoris; Z79.4 Long term (current) use of insulin; Z79.899 Other long term (current) drug therapy; Z79.82 Long term (current) use of aspirin; Z96.41 Presence of insulin pump (external) (internal); Z87.891 Personal history of nicotine dependence; Z96.612 Presence of left artificial shoulder joint; Z88.5 Allergy status to narcotic agent; Z88.0 Allergy status to penicillin; W01.0XXA Fall on same level from slipping, tripping and stumbling without subsequent striking against object, initial encounter; Y92.007 Garden or yard of unspecified non-institutional (private) residence as the place of occurrence of the external cause
CPT/HCPCS: 72128; 72131; 72192; 80053; 81003; 82306; 82550; 82553; 83036; 83735; 84100; 85025; 85610; 85730; 87086; 96361; 96372; 96374; 96375; 99285